=== PATIENT | male | born 1970 | race Two or more races ===

== ENCOUNTER 2022-05-26 09:15 | Emergency (ER) | payer OTHER ==
[~2022-05-26] VITALS: Ht 172.7 cm; Wt 79.5 kg
[2022-05-26] MEDS ORDERED: METF-1211 PO (09:24)
[2022-05-26] MEDS ORDERED: IBUPROFEN 600 MG TABLET PO ONE (09:45)
[2022-05-26 11:38] VITALS: BP 136/68
== END 2022-05-26 11:58 | disposition home or self-care (01) ==
LOC: EMS 09:15
DX: S13.4XXA Sprain of ligaments of cervical spine, initial encounter (principal); S09.90XA Unspecified injury of head, initial encounter; M25.512 Pain in left shoulder; Z79.84 Long term (current) use of oral hypoglycemic drugs; V49.49XA Driver injured in collision with other motor vehicles in traffic accident, initial encounter; Y93.89 Activity, other specified; Y92.89 Other specified places as the place of occurrence of the external cause; Y99.8 Other external cause status
CPT/HCPCS: 70450; 72125; 82962; 99284